=== PATIENT | female | born 1990 | race Hispanic/Latino ===

== ENCOUNTER 2019-03-03 21:01 | Emergency (ER) | payer SELFPAY ==
[2019-03-03 21:43] LABS: #Eosinphils 0.1 thou/uL (0.0-0.7); #Lymphocytes 2.5 thou/uL (1.20-3.40); #Monocytes 0.6 thou/uL (0.11-0.59); #Neutrophils 5.2 thou/uL (1.40-6.50); %Basophils 0.2 % (0.0-1.0); %Eosinophils 1.3 % (0.0-10.0); %Lymphocytes 29.2 % (21.0-51.0); %Monocytes 7.5 % (0.0-10.0); %Neutrophils 61.8 % (42.0-75.0); Hemoglobin 12.4 g/dL (12.0-16.0); Mean Corpuscular HGB CONC 34.3 g/dL (32.0-36.0); Mean Corpuscular Hemoglobin 30.8 pg (27.0-31.0); Mean Corpuscular Volume 89.9 fL (78.0-98.0); Mean Platelet Volume 7.6 fL (7.4-10.4); Platelet Count 229 thou/uL (130-400); RBC Distribution Width 11.5 % (11.5-14.5); Red Blood Cell (RBC) Count 4.02 mill/uL (4.20-5.40); White Blood Cell (WBC) Count 8.5 thou/uL (4.8-10.8)
[2019-03-03 22:02] LABS: Bilirubin Negative (Negative); Blood, Urine Negative (Negative); Clarity Clear (Clear); Glucose, Urine (Dipstick) Normal (Negative); Leukocyte Negative Leu/uL (Negative); Nitrite Negative (Negative); Protein, Urine (Dipstick) 10 mg/dL (Neg-Trace); Urobilinogen Normal mg/dL (Less than 2)
--- NOTE | 2019-03-03 22:35 | ULT ---
PELVIC ULTRASOUND INCLUDING TRANSABDOMINAL AND VASCULAR DUPLEX WITH COLOR AND SPECTRAL DOPPLER IMAGIN 03/03/19 HISTORY: Pelvic pain. Spotting at 9 weeks . There is a single viable intrauterine fetus in the uterus. [place]-rump length equals 2.5 cm at 9 weeks , 2 days of gestation. heart rate 175 beats per minute. Small lucency adjacent to the chorion e vidence for small subchorionic hemorrhage. Right ovary measures 4 x 2.4 x 1.6 cm containing a 0.4 x 1 .2 x 1.5 cyst. Left ovary measures 3.4 x 1.8 x 1.9 cm. Vascular duplex demonstrates flow to both ovar ies. No evidence for abnormal fluid collection within the pelvis. IMPRESSION: Viable intrauterine fetus at 9 weeks, 2 days gestation. EDC 10/04/2019. Probable small subchorionic hem orrhage. No other significant acute process. POS: [facility]
[2019-03-05 00:06] LABS: Chlamydia by PCR Not Detected (NotDetected); GC by PCR Not Detected (NotDetected)
== END 2019-03-03 23:16 | disposition home or self-care (01) ==
LOC: ERS 21:01
DX: O20.0 Threatened abortion (principal); Z3A.09 9 weeks gestation of pregnancy
CPT/HCPCS: 36415; 76856; 81003; 84702; 85025; 86900; 86901; 87480; 87491; 87510; 87591; 87660; 93976